=== PATIENT | female | born 1965 | race Caucasian/White ===

== ENCOUNTER → 2020-10-27 | Outpatient (CLI) | payer OTHER ==
[~2020-10-27] MED LIST: AMITRIPTYLINE H50 MG PO; COZAAR100 MG PO; FEXOFENADINE HC60 MG PO; KLONOPIN0.5 MG PO; MUCUS ER600 MG PO; NORVASC5 MG PO; PAXIL10 MG PO; POTASSIUM CHLO10 MEQ PO; PROBIOTIC1 EAC1 PO; PROTONIX40 MG PO; SENNOSIDES-DOC1 EACH PO; TOPROL XL 25 MG25 MG PO; ZOFRAN4 MG PO
== END ==
LOC: KOH-I 14:36
DX: S42.402A Unspecified fracture of lower end of left humerus, initial encounter for closed fracture (principal); S52.502A Unspecified fracture of the lower end of left radius, initial encounter for closed fracture
CPT/HCPCS: 73200

== ENCOUNTER → 2020-10-28 | Outpatient (CLI) | payer OTHER ==
[2020-10-28 12:22] LABS: HEMOGLOBIN 9.4 gm/dl (12.3-15.3); RED BLOOD COUNT 3.15 M/UL (4.00-5.10)
[2020-10-28 12:45] LABS: BUN/CREATININE RATIO 14 (0-10)
== END ==
LOC: OPSV2 10:27
PROVIDERS: Orthopaedic Surgery
DX: Z01.818 Encounter for other preprocedural examination (principal); S42.402A Unspecified fracture of lower end of left humerus, initial encounter for closed fracture; Z20.822 Contact with and (suspected) exposure to COVID-19; R91.8 Other nonspecific abnormal finding of lung field
CPT/HCPCS: 71046; 80048; 81001; 85027; 85610; 85730; 86850; 86900; 86901; 93005; U0002

== ENCOUNTER → 2020-10-29 | Day surgery (SDC) | payer OTHER ==
[~2020-10-29] VITALS: Ht 147.3 cm; Wt 52.6 kg
== END | disposition home or self-care (01) ==
LOC: OR 10:47
DX: S42.402A Unspecified fracture of lower end of left humerus, initial encounter for closed fracture (principal); I10 Essential (primary) hypertension; K21.9 Gastro-esophageal reflux disease without esophagitis; F41.0 Panic disorder [episodic paroxysmal anxiety]; Z87.891 Personal history of nicotine dependence; Z20.822 Contact with and (suspected) exposure to COVID-19; G56.22 Lesion of ulnar nerve, left upper limb
CPT/HCPCS: 73080; 76000; C1713; J0171; J0690; J1100; J1170; J2001; J2250; J2405; J2704; J2765; J2795; J3010; J3370; J7120

== ENCOUNTER → 2020-11-09 | Outpatient (CLI) | payer OTHER | LOC: KOH-I 15:41 | DX: S53.105D Unspecified dislocation of left ulnohumeral joint, subsequent encounter (principal) | CPT/HCPCS: 73200 ==